=== PATIENT | male | born 1960 | race Caucasian/White ===

== ENCOUNTER 2017-06-27 20:09 | Emergency (ER) | payer MEDICAID ==
[~2017-06-27] VITALS: Ht 5871 cm; Wt 95.3 kg
[~2017-06-27 20:09] MED LIST: LURA40TA3 PO
[2017-06-27] MEDS ORDERED: TETanus/Pertussis (Acell)/Diphther VAC/PF (Tdap-Adult) 0.5ml syringe IM ONE (21:10)
[2017-06-27 21:54] LABS: BASOPHILS % (AUTO) 0.3 % (0-1); EOSINOPHILS # (AUTO) 0.2 X10'3 (0-0.9); EOSINOPHILS % (AUTO) 2.9 % (0-6); HEMOGLOBIN 13.5 g/dl (14.0-17.9); LYMPHOCYTES # (AUTO) 2.4 X10'3 (1.1-4.8); LYMPHOCYTES % (AUTO) 29.9 % (21-51); MEAN CORPUSCULAR HEMOGLOBIN 32.9 PG (27.0-31.0); MEAN CORPUSCULAR HGB CONC 35.4 % (33.0-36.5); MEAN PLATELET VOLUME 7.2 FL (7.4-10.4); MONOCYTES # (AUTO) 0.5 X10'3 (0-0.9); MONOCYTES % (AUTO) 5.5 % (2-12); NEUTROPHILS % (AUTO) 61.4 % (42-75); PLATELET COUNT 273 X10'3 (140-440); RED BLOOD COUNT 4.09 X10'6 (4.70-6.10); WHITE BLOOD COUNT 8.2 X10'3 (4.5-11.0)
[2017-06-27 22:14] LABS: ALANINE AMINOTRANSFERASE 26 U/L (12-78); ALBUMIN 3.7 G/DL (3.4-5.0); ALBUMIN/GLOBULIN RATIO 1.1 (1.1-1.5); ALKALINE PHOSPHATASE 52 IU/L (46-116); ANION GAP 9 (8-16); ASPARTATE AMINO TRANSFERASE 17 U/L (10-37); BILIRUBIN,TOTAL 0.4 MG/DL (0.1-1.0); BLOOD UREA NITROGEN 21 MG/DL (7-18); BUN/CREATININE RATIO 21.2 (5.4-32.0); CHLORIDE 101 MMOL/L (99-107); CREATININE 0.99 MG/DL (0.60-1.10); ETHANOL < 0.010 GM/DL (0.0-0.010); GLUCOSE 111 MG/DL (70-104); POTASSIUM 3.7 MMOL/L (3.5-5.1); SODIUM 139 MMOL/L (135-145); TOTAL CARBON DIOXIDE 29.2 MMOL/L (24-32); TOTAL PROTEIN 7.2 G/DL (6.4-8.2); eGFR 78 ML/MIN
[2017-06-27 23:23] LABS: URINE AMPHETAMINE SCREEN POSITIVE (Neg); URINE BARBITUATE SCREEN NEGATIVE (Neg); URINE BENZODIAZEPINES SCREEN NEGATIVE (Neg); URINE CANNABINOID SCREEN NEGATIVE (Neg); URINE COCAINE SCREEN NEGATIVE (Neg); URINE METHADONE SCREEN NEGATIVE (Neg); URINE OPIATE SCREEN NEGATIVE (Neg); URINE PHENCYCLIDINE SCREEN NEGATIVE (Neg)
[2017-06-28] MEDS ORDERED: QUEtiapine 25mg tablet PO SCH (01:20)
[2017-06-28] MEDS ORDERED: quetiapine 100mg tablet PO PRN (01:20)
[2017-06-28 17:30] VITALS: BP 125/70
[2017-06-28] MEDS ORDERED: lurasidone 20mg tablet PO SCH (21:00)
== END 2017-06-28 19:44 | disposition home or self-care (01) ==
LOC: ER 20:10
DX: F41.9 Anxiety disorder, unspecified (principal); F32.9 Major depressive disorder, single episode, unspecified; F15.10 Other stimulant abuse, uncomplicated
CPT/HCPCS: 36415; 80053; 80305; 80320; 85025; 99284

== ENCOUNTER 2017-08-21 12:06 | Emergency (ER) | payer MEDICAID ==
[~2017-08-21] VITALS: Ht 177.8 cm; Wt 71.0 kg
[2017-08-21 12:24] VITALS: BP 150/87
[2017-08-21] MEDS ORDERED: AZIT250T PO (13:03)
[2017-08-21] MEDS ORDERED: ALBU8HFA PO (13:03)
== END 2017-08-21 13:22 | disposition home or self-care (01) ==
LOC: ER 12:06
DX: J20.9 Acute bronchitis, unspecified (principal); F15.10 Other stimulant abuse, uncomplicated; F17.200 Nicotine dependence, unspecified, uncomplicated; Z90.49 Acquired absence of other specified parts of digestive tract; Z90.89 Acquired absence of other organs; Z59.0 Homelessness; Z56.0 Unemployment, unspecified
CPT/HCPCS: 99283

== ENCOUNTER 2018-04-28 08:57 | Emergency (ER) | payer MEDICAID ==
[~2018-04-28] VITALS: Ht 177.8 cm; Wt 90.0 kg
[~2018-04-28 08:57] MED LIST changes: +AZIT250T PO
[2018-04-28 09:11] VITALS: BP 145/76
== END 2018-04-28 10:26 | disposition home or self-care (01) ==
LOC: ER 08:58
DX: F15.90 Other stimulant use, unspecified, uncomplicated (principal); Z02.89 Encounter for other administrative examinations; Z90.49 Acquired absence of other specified parts of digestive tract; Z90.89 Acquired absence of other organs; Z79.899 Other long term (current) drug therapy; Z59.0 Homelessness; Z56.0 Unemployment, unspecified
CPT/HCPCS: 99281